=== PATIENT | female | born 2005 | race Caucasian/White ===

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

== ENCOUNTER 2025-04-20 18:56 | Emergency (ER) | payer SELFPAY ==
[2025-04-20 19:04] VITALS: BP 118/77; PULSE 84; RESP 20; TEMP 36.9; O2SAT 100; BMI 21.4
[2025-04-20 19:10] VITALS: BP 118/77; PULSE 72; RESP 20; O2SAT 100
[2025-04-20 19:22] VITALS: RESP 20
[2025-04-20] MEDS: morphine 4 mg/mL SDV 1 mL IM (19:22)
[2025-04-20 19:37] VITALS: BP 98/70; O2SAT 98
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
--- NOTE | 2025-04-20 20:18 | W.ED.ANIMALB ---
HPI - Animal Bite General: Chief Complaint: Animal Bite Stated Complaint: Attacked By A dog Time Seen by Provider: 04/20/25 19:17 History of Present Illness: 20-year-old female presents to ED following a dog bite to her left hand that occurred just prior to arrival. Patient reports she was attempting to break up a fight between two pit bulls - her own dog and another dog her mother's friend was babysitting. During the altercation, her fianc? fired warning shots to separate the dogs. After the third shot, which reportedly hit one of the dogs, the attacking dog released its wood tank builder on patient's dog but then bit the patient's left hand. Patient sustained multiple puncture wounds to both dorsal and palmar aspects of the left hand. Patient denies any prior similar injuries except for a minor unrelated injury to hand from work this morning. Related Data Previous Rx's ?Medication ?Instructions ?Recorded medroxyprogesterone 150 mg/mL 150 mg IM .every 3 months #1 mL 12/14/23 intramuscular suspension (Depo-Provera) amoxicillin 875 mg-potassium 1 tab PO Q12H #20 tabs 04/20/25 clavulanate 125 mg tablet hydrocodone 5 mg-acetaminophen 325 1 tab PO Q8H PRN pain #14 tabs 04/20/25 mg tablet Allergies Allergy/AdvReac Type Severity Reaction Status Date / Time No Known Allergies Allergy Verified 07/04/24 08:09 [facility] ED PFSH: Medical History No pertinent past medical history neghx: htn,dm,thyroid,dvt/pe PCP: Dr. Rubalcava Surgical History No history of previous surgery Family History Grandmother Hypertension maternal Hypercholesteremia Maternal Denies family history of Colon cancer Ovarian cancer Diabetes Heart disease Breast cancer Uterine cancer Thyroid disease Stroke Course Vital Signs: Vital signs: Vital Signs Temperature 98.4 F 04/20/25 19:04 Pulse Rate 72 04/20/25 19:10 Respiratory Rate 20 H 04/20/25 19:22 Blood Pressure 98/70 04/20/25 19:37 Pulse Oximetry 98 04/20/25 19:37 Oxygen Delivery Me thod Room Air 04/20/25 19:04 MDM - Animal Bite Medical Decision Making ROS: Limited ROS due to acute nature of injury. 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 Mucous membranes moist Neck: Supple Respiratory: No increased work of breathing, No wheezing Cardiac: Regular rate and rhythm, 2+ pulses in all extremities Abdomen: Soft, non-distended, no rebound or guarding Neuro: Cranial nerves grossly intact, no focal motor or sensory deficits noted Extremities: Left hand with significant soft tissue swelling. Multiple puncture wounds noted on both dorsal and palmar aspects (approximately 6 wounds on palm and 7-8 wounds on dorsum). Full range of motion preserved but painful. Intact sensation to all digits. Good capillary refill. Minor superficial abrasion noted on leg with dried blood. INITIAL IMPRESSION AND PLAN: Given the history and presentation, the primary working diagnosis is dog bite with multiple puncture wounds to left hand. Additional considerations include potential fracture, tendon injury, and risk of infection. Plan: 1. X-ray left hand to evaluate for fracture 2. Tetanus prophylaxis update 3. IV antibiotics due to high risk of infection 4. Pain management 5. Wound cleaning and dressing 6. Oral antibiotics for discharge TEST INTERPRETATIONS: X-ray Left Hand: - No acute fracture or traumatic malalignment - Diffuse soft tissue swelling noted - Locules of gas in soft tissues of wrist and dorsum of hand, likely related to recent puncture wounds PROCEDURES: Wound cleaning and dressing applied to left hand CONSIDERED BUT NOT PERFORMED: Primary wound closure CONSIDERED but NOT DONE due to increased risk of infection with dog bite wounds FINAL IMPRESSION: Based on all the above, my clinical impression is most compatible with dog bite with multiple puncture wounds to left hand without evidence of fracture. The clinical picture is not currently suggestive of compartment syndrome or deep space infection. Although other conditions were also considered, they were deemed unlikely based on the clinical information available. CLINICAL DISPOSITION: The patient's current condition is stable in my estimation and the most appropriate and indicated disposition at this time is discharge home with close follow-up. Rationale for Discharge: Patient has no evidence of fracture, maintains good range of motion and sensation, and has received appropriate prophylactic treatment including tetanus update and antibiotics. Patient demonstrates understanding of return precautions and wound care instructions. RISK STRATIFICATION AND CLINICAL DECISION RULES APPLIED: No specific clinical decision rules were applicable to this case CASE SUMMARY: 20-year-old female presented with dog bite to left hand after attempting to break up a dog fight. Multiple puncture wounds were noted on examination with associated swelling but intact neurovascular status. X-ray showed no fracture. Patient received tetanus prophylaxis, IV Ancef, and IM morphine in ED. Wound was cleaned and dressed. Patient was discharged home with oral Augmentin, hydrocodone for pain control, and appropriate follow-up instructions. Very strict return precautions were discussed and we discussed the high risk of potential infection. Lab Data Radiology Impressions Hand X-Ray 04/20/25 20:05 IMPRESSION: As above. All radiology interpretation(s) finalized by discharge Discharge Plan Discharge Patient Disposition: Home Clinical Impression: Dog bite Condition: Stable Prescriptions: New amoxicillin-pot clavulanate 875-125 mg tablet 1 tab PO Q12H Qty: 20 0RF hydrocodone-acetaminophen 5-325 mg tablet 1 tab PO Q8H PRN (Reason: pain) Qty: 14 0RF No Action medroxyprogesterone [Depo-Provera] 150 mg/mL suspension 150 mg IM .every 3 months Qty: 1 3RF Discharge Orders: Discharge ED (Routine); Ordered 04/20/25 Ordered By: Robinson Zheng Referrals: Abhilash Rubalcava MD [Primary Care Provider, [facility]] Patient Instructions: Animal Bite (ED), Opioid Safety, Pain Management Activity Restrictions/Additional Instructions: You have been treated for a dog bite to your left hand. Take your prescribed antibiotics (Augmentin) exactly as directed to prevent infection. You may take the prescribed pain medication (hydrocodone) as needed for pain. Keep the wound clean and dry, changing dressings daily or when soiled. Return to the Emergency Department immediately if you develop: fever, increasing redness or swelling around the wound, pus drainage, severe pain, numbness or tingling in fingers, or difficulty moving your hand or fingers. Follow up with your primary care provider in 2-3 days for wound check. While at work, keep the wound clean and covered to prevent contamination. 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
[2025-04-20] MEDS: ceFAZolin 1,000 mg SDV 1000 MG IVP (21:14)
[2025-04-20] MEDS: tetanus-dipt-pertussis 0.5 mL SDV IM (21:14)
[2025-04-20 21:37] VITALS: O2SAT 98
[2025-04-20 21:57] VITALS: BP 110/73; PULSE 104; RESP 18; O2SAT 98
== END 2025-04-20 21:58 | disposition home or self-care (01) ==
PROVIDERS: Emergency Provider Student in an Organized Health Care Education/Training Program; PCP Family Medicine
DX: S61.452A Open bite of left hand, initial encounter (principal); W54.0XXA Bitten by dog, initial encounter
CPT/HCPCS: 73130; 90715; 96372; 96374; 99284; J0690; J2270

== ENCOUNTER 2025-04-23 15:57 | Emergency (ER) | payer SELFPAY ==
[2025-04-23 16:05] VITALS: BP 98/63; PULSE 80; RESP 16; TEMP 36.7; O2SAT 98
--- NOTE | 2025-04-23 18:10 | ED_ITS ---
HPI - Animal Bite General: Chief Complaint: Animal Bite Stated Complaint: needs to start rabie shots Time Seen by Provider: 04/23/25 17:18 Source: patient Mode of arrival: ambulatory Limitations: no limitations History of Present Illness: 20yo female presents with family for rab ies injections. Patient reports that she had a dog bite to the left hand on 04/20 and was seen in this ER. Patient reports she was trying to break up a fight between 2 dogs when the bite occurred. States that the dog was her mother's friend. Reports they were told that night the dog was up-to-date on immunizations, but the friend has not yet been able to produce the vaccine information. States that they have since left town and the dog is not able to be monitored nor are they able to get the vaccine information. Patient would like to proceed with rabies prophylaxis. She states that she has been taking the prescribed antibiotics and has been cleaning her wounds. States that she is able to move her fingers. Patient denies any other concerns. Associated symptoms: Deny chills or fever(s) Related Data Previous Rx's ?Medication ?Instructions ?Recorded medroxyprogesterone 150 mg/mL 150 mg IM .every 3 month s #1 mL 12/14/23 intramuscular suspension (Depo-Provera) amoxicillin 875 mg-potassium 1 tab PO Q12H #20 tabs clavulanate 125 mg tablet hydrocodone 5 mg-acetaminophen 325 1 tab PO Q8H PRN pa in #14 tabs 25/25 mg tablet Allergies Allergy/AdvReac Type Severity Reaction Status Date / Time No Known Allergies Allergy Verified 07/04/24 08:09 Review of Systems Const: Denies: fever(s) or chills Skin/Breast: Reports: other (bite wounds left hand) [facility] ED PFSH: Medical History No pertinent past medical history neghx: htn,dm,thyroid,dvt/pe PCP: Dr. Rubalcava Surgical History No history of previous surgery Family History Grandmother Hypertension maternal Hypercholesteremia Maternal Denies family history of Colon cancer Ovarian cancer Diabetes Heart disease Breast cancer Uterine cancer Thyroid disease Stroke Physical Exam Const: COMMON NORMALS: no acute distress, patient oriented x3 and alert GENERAL APPEARANCE: cooperative ORIENTATION/CONSCIOUSNESS: Yes awake OTHER: Patient is ambulatory to vertical flow recliner with no difficulty. She is interactive with exam appropriately. She is in no acute distress. Family is at bedside Chest: CHEST: Yes Symmetrical chest wall rise Resp: COMMON NORMALS: normal respiratory effort EFFORT & INSPECTION: Yes able to speak in complete sentences Extremity: LEFT UPPER EXTREMITY: Yes hand & digits (scabbed wounds to dorsum and palmar aspect. No erythema noted) Left hand and digits: Yes ROM (FROM) Neuro: COMMON NORMALS: patient oriented x3 SENSORIUM/ORIENTATION: Yes alert Course Vital Signs: Vital signs: Vital Signs Temperature 98.1 F 04/23/25 16:05 Pulse Rate 80 04/23/25 16:05 Respiratory Rate 16 04/23/25 16:05 Blood Pressure 98/63 04/23/25 16:05 Pulse Oximetry 98 04/23/25 16:05 Oxygen Delivery Me thod Room Air 04/23/25 16:05 MDM - Animal Bite Medical Decision Making 20yo female presents with family for rabies injections. Patient reports that she had a dog bite to the left hand on 04/20 and was seen in this ER. Patient has been taking her prescribed antibiotics and initially thought the dog was up-to-date on vaccinations, but is unable to obtain that information and the dog has since left town with its owners. She would like to proceed with rabies prophylaxis. Patient is nontoxic in appearance. Vital signs are stable. Patient has never received rabies vaccination. Will proceed with human rabies immunoglobulin as well as vaccination tonight. Discussed with patient she would need to have repeat vaccination on day 3, 7, and 14 at the infusion center. Patient does state understanding and wishes to proceed. Medications administered by nursing. Orders were placed for rabies vaccines. Return precautions provided. Patient and family state understanding and have no further questions or concerns at this time. No radiology studies performed this visit Discharge Plan Discharge Patient Disposition: Home Clinical Impression: Need for post exposure prophylaxis for rabies Dog bite Qualifiers: Encounter type: initial encounter Qualified Code(s): W54.0XXA - Bitten by dog, initial encounter Condition: Stable Prescriptions: No Action medroxyprogesterone [Depo-Provera] 150 mg/mL suspension 150 mg IM .every 3 months Qty: 1 3RF amoxicillin-pot clavulanate 875-125 mg tablet 1 tab PO Q12H Qty: 20 0RF hydrocodone-acetaminophen 5-325 mg tablet 1 tab PO Q8H PRN (Reason: pain) Qty: 14 0RF Discharge Orders: Discharge ED (Routine); Ordered 04/23/25 Ordered By: Shiraz Rubio Referrals: Abhilash Rubalcava MD [Primary Care Provider, [facility]] Patient Instructions: Rabies Vaccine (By injection) (Imovax Rabies, RabAvert), Rabies Immune Globulin (By injection) (HyperRAB S/D, Imogam..., Rabies (ED), Pain Management Activity Restrictions/Additional Instructions: You did receive rabies vaccination as well as immune globulin in the emergency department tonight. An order has been sent to the infusion center for repeat vaccinations on 04/26, 04/30, 05/07. Continue with your previously prescribed antibiotics and monitor for infection Follow-up with primary care for wound recheck in 2 to 3 days. 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
[2025-04-23] MEDS: rabies vaccine 2.5 unit SDV IM (19:12)
[2025-04-23] MEDS: rabies IG 300 unit/mL SDV 1 mL 1080 UNIT IM (19:15)
[2025-04-23 20:28] VITALS: BP 105/69; PULSE 75; RESP 17; TEMP 36.9; O2SAT 98
== END 2025-04-23 20:07 | disposition home or self-care (01) ==
PROVIDERS: Emergency Provider Nurse Practitioner; PCP Family Medicine
DX: Z29.14 Encounter for prophylactic rabies immune globulin (principal); Z20.3 Contact with and (suspected) exposure to rabies; S61.452A Open bite of left hand, initial encounter; W54.0XXA Bitten by dog, initial encounter
CPT/HCPCS: 90375; 90471; 90675; 96372; 99283

== ENCOUNTER 2025-04-26 17:22 | Emergency (ER) | payer SELFPAY ==
[2025-04-26 17:27] VITALS: BP 104/58; PULSE 78; RESP 18; TEMP 36.5; O2SAT 98
[2025-04-26] MEDS: rabies vaccine 2.5 unit SDV IM (18:14)
--- NOTE | 2025-04-26 18:37 | W.ED.RECABL ---
HPI - Recheck/Abnormal Lab/Rx General: Chief Complaint: Recheck/Abnormal Lab/Rx Stated Complaint: rabie shots Time Seen by Provider: 04/26/25 17:30 History of Present Illness: 20-year-old female patient presents the emergency department for her subsequent rabies vaccine. Patient states she has 0 complaints and is only here for her rabies vaccine. Related Data Previous Rx's ?Medication ?Instructions ?Recorded medroxyprogesterone 150 mg/mL 150 mg IM .every 3 months #1 mL 12/14/23 intramuscular suspension (Depo-Provera) amoxicillin 875 mg-potassium 1 tab PO Q12H #20 tabs 04/20/25 clavulanate 125 mg tablet hydrocodone 5 mg-acetaminophen 325 1 tab PO Q8H PRN pain #14 tabs 04/20/25 mg tablet Allergies Allergy/AdvReac Type Severity Reaction Status Date / Time No Known Allergies Allergy Verified 07/04/24 08:09 [facility] ED PFSH: Medical History No pertinent past medical history neghx: htn,dm,thyroid,dvt/pe PCP: Dr. Rubalcava Surgical History No history of previous surgery Family History Grandmother Hypertension maternal Hypercholesteremia Maternal Denies family history of Colon cancer Ovarian cancer Diabetes Heart disease Breast cancer Uterine cancer Thyroid disease Stroke Physical Exam Narrative: EXAM NARRATIVE: Patient denies any complaints patient is here for a rabies vaccine only. Patient's previous dog bite wound is healing appropriately with no evidence of infection. Const: COMMON NORMALS: patient oriented x3 Resp: COMMON NORMALS: normal respiratory effort Cardio: COMMON NORMALS: regular rate RATE: regular rate Neuro: COMMON NORMALS: patient oriented x3 Skin: COMMON NORMALS: no rashes or lesions noted GENERAL SKIN EXAM: no rashes or lesions noted Course Vital Signs: Vital signs: Vital Signs Temperature 97.7 F 04/26/25 17:27 Pulse Rate 78 04/26/25 17:27 Respiratory Rate 18 04/26/25 17:27 Blood Pressure 104/58 04/26/25 17:27 Pulse Oximetry 98 04/26/25 17:27 MDM - Recheck/Abnormal Lab/Rx Medical Decision Making Patient is well-appearing nontoxic and in no acute distress. Physical exam findings are negative this is an a normal adult physical exam. Patient is here for rabies vaccine only. Rabies vaccine was administered subsequent follow-up visits was discussed with patient as well as return precautions and home care. No radiology studies performed this visit Discharge Plan Discharge Patient Disposition: Home Clinical Impression: Need for post exposure prophylaxis for rabies Condition: Stable Prescriptions: No Action medroxyprogesterone [Depo-Provera] 150 mg/mL suspension 150 mg IM .every 3 months Qty: 1 3RF amoxicillin-pot clavulanate 875-125 mg tablet 1 tab PO Q12H Qty: 20 0RF hydrocodone-acetaminophen 5-325 mg tablet 1 tab PO Q8H PRN (Reason: pain) Qty: 14 0RF Discharge Orders: Discharge ED (Routine); Ordered 04/26/25 Ordered By: Humaira Greenberg Referrals: Abhilash Rubalcava MD [Primary Care Provider, [facility]] Patient Instructions: Opioid Safety, Pain Management Print Language: Austrian Coding Level of Care Code 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
== END 2025-04-26 19:09 | disposition home or self-care (01) ==
PROVIDERS: Emergency Provider Registered Nurse; PCP Family Medicine
DX: Z20.3 Contact with and (suspected) exposure to rabies (principal); Z29.14 Encounter for prophylactic rabies immune globulin
CPT/HCPCS: 90471; 90675; 99283

== ENCOUNTER 2025-04-30 15:59 | Emergency (ER) | payer SELFPAY ==
[2025-04-30 16:16] VITALS: BP 97/57; PULSE 73; RESP 18; TEMP 36.7; O2SAT 98
--- NOTE | 2025-04-30 16:17 | W.ED.GENADLT ---
HPI - General Adult General: Stated complaint: rabie shot Time Seen by Provider: 04/30/25 16:14 History of Present Illness: 20-year-old female presents emergency room for third and rabies series of rabies vaccinations. She was bitten in the hand by a pit bull unknown origin so she is getting rabies series. She has a bandage on her hand should she has not had any sign of infection she notes a little bruising in the fingers distal to the bite. No other problems. Related Data Previous Rx's ?Medication ?Instructions ?Recorded medroxyprogesterone 150 mg/mL 150 mg IM .every 3 months #1 mL 12/14/23 intramuscular suspension (Depo-Provera) amoxicillin 875 mg-potassium 1 tab PO Q12H #20 tabs 04/20/25 clavulanate 125 mg tablet hydrocodone 5 mg-acetaminophen 325 1 tab PO Q8H PRN pain #14 tabs 04/20/25 mg tablet Allergies Allergy/AdvReac Type Severity Reaction Status Date / Time No Known Allergies Allergy Verified 07/04/24 08:09 Review of Systems Const: Denies: fever(s) or chills PFSH ED PFSH: Medical History No pertinent past medical history neghx: htn,dm,thyroid,dvt/pe PCP: Dr. Rubalcava Surgical History No history of previous surgery Family History Grandmother Hypertension maternal Hypercholesteremia Maternal Denies family history of Colon cancer Ovarian cancer Diabetes Heart disease Breast cancer Uterine cancer Thyroid disease Stroke Physical Exam Extremity: OTHER: Examination of the left hand the fourth finger shows some ecchymosis distal to where the bite was. She pulled the bandage back a bit and examined there is no sign of infection appears to be blood settling out in the soft tissue from where she was bitten in the hand MDM - General Adult Medical Decision Making Complete rabies vaccination series third shot today. Follow-up as per rabies schedule. No radiology studies performed this visit Discharge Plan Discharge Patient Disposition: Home Clinical Impression: Need for post exposure prophylaxis for rabies Condition: Stable Prescriptions: No Action medroxyprogesterone [Depo-Provera] 150 mg/mL suspension 150 mg IM .every 3 months Qty: 1 3RF amoxicillin-pot clavulanate 875-125 mg tablet 1 tab PO Q12H Qty: 20 0RF hydrocodone-acetaminophen 5-325 mg tablet 1 tab PO Q8H PRN (Reason: pain) Qty: 14 0RF Discharge Orders: Discharge ED (Routine); Ordered 04/30/25 Ordered By: Tony Mansfield Referrals: Abhilash Rubalcava MD [Primary Care Provider, [facility]] Patient Instructions: Opioid Safety, Pain Management Activity Restrictions/Additional Instructions: Complete rabies series as prescribed Print Language: Chadian Coding Level of Care Code ED Air Traffic Supervisor for [employer]ulo Rodgers
[2025-04-30] MEDS: rabies vaccine 2.5 unit SDV IM (16:36)
[2025-04-30 16:38] VITALS: BP 90/57; PULSE 63; O2SAT 100
== END 2025-04-30 17:28 | disposition home or self-care (01) ==
PROVIDERS: Emergency Provider Family Medicine; PCP Family Medicine
DX: Z29.14 Encounter for prophylactic rabies immune globulin (principal); Z20.3 Contact with and (suspected) exposure to rabies
CPT/HCPCS: 90675; 99283

== ENCOUNTER 2025-05-07 15:51 | Emergency (ER) | payer SELFPAY ==
[2025-05-07 16:13] VITALS: BP 91/55; PULSE 73; RESP 14; TEMP 36.7; O2SAT 98
--- NOTE | 2025-05-07 16:42 | W.ED.GENADLT ---
HPI - General Adult General: Chief complaint: General Medical Stated complaint: #4 rabies shot Time Seen by Provider: 05/07/25 16:23 Source: patient Mode of arrival: ambulatory Limitations: no limitations History of Present Illness: 20yo female presents with friend for her fourth rabies vaccine. Patient completed her antibiotics and has no concerns of infection and is able to move her hand with no difficulty. She denies any other concerns at this time. Related Data Previous Rx's ?Medication ?Instructions ?Recorded medroxyprogesterone 150 mg/mL 150 mg IM .every 3 months #1 mL 12/14/23 intramuscular suspension (Depo-Provera) Allergies Allergy/AdvReac Type Severity Reaction Status Date / Time No Known Allergies Allergy Verified 05/07/25 16:16 Review of Systems Const: Denies: fever(s), chills or body aches PFS ED PFSH: Medical History No pertinent past medical history neghx: htn,dm,thyroid,dvt/pe PCP: Dr. Rubalcava Surgical History No history of previous surgery Family History Grandmother Hypertension maternal Hypercholesteremia Maternal Denies family history of Colon cancer Ovarian cancer Diabetes Heart disease Breast cancer Uterine cancer Thyroid disease Stroke Physical Exam Const: COMMON NORMALS: no acute distress, patient oriented x3 and alert ORIENTATION/CONSCIOUSNESS: Yes awake OTHER: [facility]. She is interactive with exam appropriately. Family is at bedside Resp: COMMON NORMALS: normal respiratory effort EFFORT & INSPECTION: Yes able to speak in complete sentences Neuro: COMMON NORMALS: patient oriented x3 SENSORIUM/ORIENTATION: Yes alert Skin: TRAUMA: abrasion (Scabbed abrasions left hand) Course Vital Signs: Vital signs: Vital Signs Temperature 98.0 F 05/07/25 16:13 Pulse Rate 73 05/07/25 16:13 Respiratory Rate 14 05/07/25 16:13 Blood Pressure 91/55 05/07/25 16:13 Pulse Oximetry 98 05/07/25 16:13 Oxygen Delivery Me thod Room Air 06/11/25 16:13 MDM - General Adult Medical Decision Making 20yo female here for her fourth rabies vaccine to complete the series. Patient did complete her antibiotics with no difficulty. She has no other concerns at this time. Chart review does reveal that patient has received her 3 previous rabies vaccines and is due today for the fourth. Encourage patient to continue to work on range of motion of the hand. Return precautions provided. Patient states understanding and has no further questions or concerns at this time. Medical Records I reviewed the patient's medical records. No radiology studies performed this visit Discharge Plan Discharge Patient Disposition: Home Clinical Impression: Need for post exposure prophylaxis for rabies Condition: Stable Prescriptions: Discontinued amoxicillin-pot clavulanate 875-125 mg tablet 1 tab PO Q12H Qty: 20 0RF hydrocodone-acetaminophen 5-325 mg tablet 1 tab PO Q8H PRN (Reason: pain) Qty: 14 0RF No Action medroxyprogesterone [Depo-Provera] 150 mg/mL suspension 150 mg IM .every 3 months Qty: 1 3RF Discharge Orders: Discharge ED (Routine); Ordered 05/07/25 Ordered By: Shiraz Rubio Patient Instructions: Pain Management Activity Restrictions/Additional Instructions: Today's rabies vaccine completes the postexposure prophylaxis for rabies Continue to work on range of motion of the hand Follow-up with primary care as needed for recheck Return to the emergency department as needed Print Language: Pashto Coding Level of Care Code ED Integration Project Manager for Regulo Rodgers
[2025-05-07] MEDS: rabies vaccine 2.5 unit SDV IM (16:46)
== END 2025-05-07 16:53 | disposition home or self-care (01) ==
PROVIDERS: Emergency Provider Nurse Practitioner
DX: Z29.14 Encounter for prophylactic rabies immune globulin (principal)
CPT/HCPCS: 90471; 90675; 99283